=== PATIENT | male | born 1965 | race Caucasian/White ===

== ENCOUNTER 2016-09-09 11:34 | Emergency (ER) | payer OTHER ==
[2016-09-09 11:38] VITALS: BP 141/98; PULSE 106; TEMP 98.3; BMI 27.4
[2016-09-09] MEDS ORDERED: CEPHALEXIN MONOHYDRATE 500 MG CAPSULE (UD) PO ONE (13:36)
[2016-09-09] MEDS ORDERED: DIPHTH,PERTUSS(ACELL),TET 0.5 ML DISP.SYRIN IM ONE (13:36)
[2016-09-09] MEDS ORDERED: CEPHALEXIN MONOHYDRATE 500 MG CAPSULE (UD) ONE (13:39)
--- NOTE | 2016-09-09 13:41 | PDOC ---
History of Present Illness - General Chief Complaint: Laceration Stated Complaint: LACERATED FACE Time Seen by Provider: 09/09/16 12:38 History Source: Patient Exam Limitations: No Limitations - History of Present Illness Initial Comments: 09/09/16 16:19 was working on a roof when slipped falling and striking chin on edge of nail causing a laceration to the left aspect of his chin. States held pressure on it and came immediately to emergency department. States is not a through and through laceration, no dental injury, no neck pain or any other problem. Uncertain as to last tetanus shot Timing/Duration: reports: just prior to arrival Location: reports: face Past History - Travel Traveled outside of the country in the last 30 days: No Close contact w/someone who was outside of country & ill: No - Past Medical History Allergies/Adverse Reactions: Allergies Allergy/AdvReac Type Severity Reaction Status Date / Time No Known Allergies Allergy Verified 09/09/16 11:38 Home Medications: Ambulatory Orders Cephalexin Monohydrate [Keflex -] 500 mg PO Q8H #15 capsule 09/09/16 Other medical history: NONE - Psycho/Social/Smoking Cessation Hx Suicidal Ideation: No Smoking History: Never smoked Hx Alcohol Use: No Drug/Substance Use Hx: No Substance Use Type: None Review of Systems - Review of Systems Able to Perform ROS?: Yes Is the patient limited Albanian proficient: Yes Constitutional: Yes: Symptoms Reported, See HPI, Malaise HEENTM: Yes: See HPI, Other. No: Symptoms Reported, Nose Congestion Respiratory: No: Symptoms reported Musculoskeletal: Yes: Symptoms Reported Integumentary: Yes: Symptoms Reported, Other (stellate laceration to left chin) Neurological: Yes: Symptoms reported, See HPI All Other Systems: Reviewed and Negative *Physical Exam - Vital Signs Last Vital Signs Temp Pulse Resp BP Pulse Ox 98.3 F 106 H 20 141/98 97 09/09/16 11:36 09/09/16 11:36 09/09/16 11:36 09/09/16 11:36 09/09/16 11:36 - Physical Exam General Appearance: Yes: Appropriately Dressed, Apparent Distress HEENT: positive: NIKITA, Normal ENT Inspection, TMs Normal, Pharynx Normal Neck: positive: Supple. negative: Tender Respiratory/Chest: positive: Lungs Clear, Normal Breath Sounds Gastrointestinal/Abdominal: positive: Normal Bowel Sounds, Tender, Soft Extremity: positive: Normal Inspection, Normal Range of Motion Integumentary: positive: Normal Color, Dry, Warm, Other (3cm stellate laceration to left chin, deep flap lac) Neurologic: positive: fuel buyer II-XII NML intact, Fully Oriented, Alert, Normal Mood/ Affect, Normal Response, Motor Strength 5/5 Procedures - Laceration/Wound Repair Left Face Wound Length: 2.6 to 5.0 cm Wound Explored: clean Wound's Depth, Shape: into muscle, flap, stellate Irrigated w/ Saline: Yes Betadine Prep: Yes Anesthesia: 1% Lidocaine Wound Repaired With: Sutures Suture Size/Type: 6:0, proline Number of Sutures: 7 Layer Closure: Yes Deep Layer Suture Size/Type: 5:0, gut Number of Deep Layer Sutures: 3 Sterile Dressing Applied: No Progress Note - Progress Note Progress Note: facial laceration- repaired - started on Keflex TID/ updated Boostrix IM. Medical Decision Making - Medical Decision Making 09/09/16 13:37 *DC/Admit/Observation/Transfer Diagnosis at time of Disposition: Facial laceration Qualifiers: Encounter type: initial encounter Qualified Code(s): S01.81XA - Laceration without foreign body of other part of head, initial encounter - Discharge Dispostion Disposition: HOME Condition at time of disposition: Stable Admit: No - Prescriptions Prescriptions: Cephalexin Monohydrate [Keflex -] 500 mg PO Q8H #15 capsule - Referrals Referrals: Franco Aquino [Primary Care Provider] - - Patient Instructions Printed Discharge Instructions: DI for Laceration Repair Additional Instructions: Keep wound clean and dry Avoid strenuous activity/exercise to create a hot or sweaty environment until sutures are removed Reapply bacitracin ointment 2 times a day until sutures are removed Return to emergency Department or private physician in7 days for suture removal May use Tylenol or Motrin for pain relief Keflex 500 mg tablet every 8 hours for 5 days Your tetanus/diphtheria/pertussis booster was updated today Return immediately to emergency department for redness, swelling, pain, or signs of infection
== END 2016-09-09 13:51 | disposition home or self-care (01) ==
LOC: JERFT 11:34
PROC: 0JQ10ZZ Repair Face Subcutaneous Tissue and Fascia, Open Approach (ICD-10-PCS; principal; 2016-09-09)
DX: S01.81XA Laceration without foreign body of other part of head, initial encounter (principal); W45.0XXA Nail entering through skin, initial encounter; Y93.H3 Activity, building and construction; Y92.89 Other specified places as the place of occurrence of the external cause; Y99.8 Other external cause status
CPT/HCPCS: 90715; 99281-25